=== PATIENT | female | born 1980 | race Caucasian/White ===

== ENCOUNTER 2020-08-09 07:37 | Emergency (ER) | payer MEDICARE, OTHER ==
[2020-08-09 08:23] LABS: HEMOGLOBIN 14.8 gm/dl (12.3-15.3); RED BLOOD COUNT 4.99 M/UL (4.00-5.10); WHITE BLOOD COUNT 11.1 K/UL (4.5-11.0)
[2020-08-09 08:42] LABS: BUN/CREATININE RATIO 22 (0-10)
[2020-08-09] MEDS ORDERED: AUGMENTIN 875-1 EACH PO (11:41)
[2020-08-15] MEDS ORDERED: HYDROCODON-ACE1 EAC4 PO (09:17)
== END 2020-08-09 12:15 | disposition home or self-care (01) ==
LOC: ER1 07:37
PROVIDERS: Emergency Medicine
DX: K81.0 Acute cholecystitis (principal); F17.200 Nicotine dependence, unspecified, uncomplicated; Z98.890 Other specified postprocedural states
CPT/HCPCS: 80053; 83690; 84703; 85025; 87040; 96365; 96375; 99284; J2270; J2405; J7030; Q9967

== ENCOUNTER → 2020-08-15 | Day surgery (SDC) | payer MEDICARE, OTHER ==
[~2020-08-15] MED LIST: AUGMENTIN 875-1 EACH PO; HYDROCODON-ACE1 EAC4 PO
== END | disposition home or self-care (01) ==
LOC: OR 06:19
DX: K80.66 Calculus of gallbladder and bile duct with acute and chronic cholecystitis without obstruction (principal); M79.7 Fibromyalgia; F17.210 Nicotine dependence, cigarettes, uncomplicated; K76.0 Fatty (change of) liver, not elsewhere classified; E66.01 Morbid (severe) obesity due to excess calories; Z68.34 Body mass index [BMI] 34.0-34.9, adult; Z79.2 Long term (current) use of antibiotics; Z83.3 Family history of diabetes mellitus
CPT/HCPCS: 84703; J0690; J1100; J1170; J2250; J2405; J2704; J3010; J7030; J7120